=== PATIENT | female | born 1960 | race Caucasian/White ===

== ENCOUNTER 2017-07-17 13:29 | Emergency (ER) | payer MEDICARE ==
[2017-07-17 13:47] VITALS: BP 181/81
== END 2017-07-17 13:55 | disposition left against medical advice (07) ==
LOC: UCEAST 13:29
DX: K08.89 Other specified disorders of teeth and supporting structures (principal); Z53.21 Procedure and treatment not carried out due to patient leaving prior to being seen by health care provider

== ENCOUNTER 2018-03-27 10:06 | Emergency (ER) | payer MEDICARE ==
--- NOTE | 2018-03-27 10:25 | ED ---
Back Pain - HPI Summary HPI Summary: 57 y/o female presents to the ED c/o L lower back pain radiating down her L leg. Pain rated 10/10 in severity. Onset yesterday, worsening last night. Pt also c/o rash @ R foot. Pt is ambulatory. Sitting and standing for long periods of time makes the back pain worse. - History of Current Complaint Chief Complaint: EDBackInjuryPain Stated Complaint: BACK PAIN Hx Obtained From: Patient Onset/Duration: Lasting Days Onset/Duration: Started Days Ago Timing: Constant Back Pain Location: Is Discrete @ - L lower back, Radiates To - down L leg Pain Intensity: 10 Alleviating Symptom(s): Nothing - Allergies/Home Medications Allergies/Adverse Reactions: Allergies Allergy/AdvReac Type Severity Reaction Status Date / Time MS Acetaminophen Allergy Nausea And Verified 03/27/18 11:03 [From Darvocet-N] Vomiting MS Codeine [Codeine] Allergy Nausea And Verified 03/27/18 11:03 Vomiting MS Propoxyphene Allergy Nausea And Verified 03/27/18 11:03 [From Darvocet-N] Vomiting MS Amoxicillin AdvReac Nausea And Verified 03/27/18 11:03 [From Augmentin] Vomiting MS Clavulanic Acid AdvReac Nausea And Verified 03/27/18 11:03 [From Augmentin] Vomiting PMH/Surg Hx/FS Hx/Imm Hx Previously Healthy: No Endocrine/Hematology History: Reports: Hx Diabetes, Hx Thyroid Disease Respiratory History: Reports: Hx Chronic Obstructive Pulmonary Disease (COPD) Infectious Disease History: No Infectious Disease History: Denies: History Other Infectious Disease, Traveled Outside the [place] in Last 30 Days - Family History Known Family History: Positive: Unknown - Social History Alcohol Use: Rare Hx Substance Use: No Substance Use Type: Reports: None Hx Tobacco Use: Yes Smoking Status (MU): Current Every Day Smoker Amount Used/How Often: 1 PPD Review of Systems Constitutional: Negative Eyes: Negative ENT: Negative Cardiovascular: Negative Respiratory: Negative Gastrointestinal: Negative Genitourinary: Negative Musculoskeletal: Other - L Lower back pain Positive: Rash Neurological: Negative Psychological: Normal All Other Systems Reviewed And Are Negative: No Physical Exam - Summary Physical Exam Summary: Appearance: Alert, conversive, nontoxic appearing Skin: Warm, dry, no mottling, slightly raised macular rash, non-tender to palpation at R foot. HEENT: EOMI, PERRL, moist mucous membranes Neck: No masses on the neck, supple Respiratory: Clear to auscultation, breath sounds present, no rales, no rhonchi , no wheezes Cardiovascular: RRR, pulses are symmetrical in both lower and upper extremities Abdomen: Soft, non-tender Bowel Sounds: Present Musculoskeletal: No CVA tenderness, no obvious deformity, moving all extremities in a grossly normal manner. There is some tenderness at her L lower back. Pt is up and ambulatory. Neurological: A&Ox3, CN II-XII Intact, moving all extremities symmetrically Psychiatric: Normal affect and mood Triage Information Reviewed: Yes Vital Signs On Initial Exam: Initial Vitals Temp Pulse Resp BP Pulse Ox 98.6 F 87 20 190/78 98 03/27/18 10:11 03/27/18 10:11 03/27/18 10:11 03/27/18 10:11 03/27/18 10:11 Vital Signs Reviewed: Yes Diagnostics - Vital Signs Vital Signs Temp Pulse Resp BP Pulse Ox 03/27/18 10:11 98.6 F 87 20 190/78 98 - Laboratory Lab Statement: Any lab studies that have been ordered have been reviewed, and results considered in the medical decision making process. Back Pain Course/Dx - Course Assessment/Plan: L lower back pain radiating down l leg starting yesterday. Pt was able to get up walk in a [place] and get back into her chair without assistance. In ED course given Tylenol, Mortrin, prednisone. Pt will be d/c home f/u PCP. - Diagnoses Provider Diagnoses: Sciatica Discharge - Sign-Out/Discharge Documenting (check all that apply): Patient Departure - Discharge Plan Condition: Stable Disposition: HOME Prescriptions: Cyclobenzaprine TAB* [Flexeril 10 MG TAB*] 10 mg PO BID PRN #20 tab MDD 2 PRN Reason: Pain - Back predniSONE TAB* [Deltasone 20 MG TAB*] 60 mg PO DAILY #12 tab MDD 3 Patient Education Materials: Sciatica (ED) Forms: *Work Release Referrals: Jia Villaseñor MD [Primary Care Provider] - Additional Instructions: do stretching exercises as instructed. heating pad to your back for comfort. be careful not to leave on more than 20 minutes. you do not want to burn your back. take tylenol, motrin, prednisone, and flexeril as instructed. avoid heavy lifting for 1 week. return immediately if you are leaking urine or stool or you develop numbness to your genital area. - Billing Disposition and Condition Condition: STABLE Disposition: Home - Attestation Statements Document Initiated by Staciibisabelle: Yes Documenting Scribe: Leonard Montilla Provider For Whom Scribe is Documenting (Include Credential): Priti Dent MD Scribe Attestation: Leonard Alatorre, scribed for Priti Dent MD on 03/27/18 at 1214. Scribe Documentation Reviewed: Yes Provider Attestation: The documentation as recorded by the Leonard boyer accurately reflects the service I personally performed and the decisions made by me, Priti Dent MD
[2018-03-27] MEDS ORDERED: predniSONE TAB* 20 MG PO ONE (10:50)
[2018-03-27] MEDS ORDERED: Acetaminophen TAB* 325 MG PO ONE (10:50)
[2018-03-27] MEDS ORDERED: Ibuprofen TAB* 600 MG PO ONE (10:50)
[2018-03-27 11:21] VITALS: BP 190/70
== END 2018-03-27 11:20 | disposition home or self-care (01) ==
LOC: ED 10:06
DX: M54.32 Sciatica, left side (principal); F17.200 Nicotine dependence, unspecified, uncomplicated; Z88.3 Allergy status to other anti-infective agents; Z88.5 Allergy status to narcotic agent
CPT/HCPCS: 99282; A9270-GY; J7512

== ENCOUNTER 2018-07-16 09:13 | Emergency (ER) | payer MEDICARE ==
[2018-07-16 09:34] VITALS: BP 166/77
--- NOTE | 2018-07-16 09:59 | UC ---
Dental HPI - HPI Summary HPI Summary: 57-year-old woman comes in with chief complaint of dental swelling and pain in the left lower molars. She reports that this is a recurrent issue and only level o Levaquin helps. His been going on for couple of days. Get worse overnight with swelling of the left lower jaw. Pain it's worse with chewing. Not chewing does not exacerbate the pain. No fevers or chills. - History of Current Complaint Chief Complaint: UCDentalProblem Stated Complaint: DENTAL Time Seen by Provider: 07/16/18 09:47 Pain Intensity: 8 - Allergies/Home Medications Allergies/Adverse Reactions: Allergies Allergy/AdvReac Type Severity Reaction Status Date / Time acetaminophen Allergy Nausea And Verified 07/16/18 09:37 [From Darvocet-N] Vomiting amoxicillin [From Augmentin] Allergy Nausea And Verified 07/16/18 09:37 Vomiting clavulanic acid Allergy Nausea And Verified 07/16/18 09:37 [From Augmentin] Vomiting clindamycin Allergy GI Upset Verified 07/16/18 09:37 codeine Allergy Nausea And Verified 07/16/18 09:37 Vomiting propoxyphene Allergy Nausea And Verified 07/16/18 09:37 [From Darvocet-N] Vomiting tomato Allergy Rash Verified 07/16/18 09:37 BEES Allergy Difficulty Uncoded 07/16/18 09:37 Breathing Home Medications: Home Medications Dulaglutide [Trulicity] 0.75 mg SQ WEEKLY 07/16/18 [History Confirmed 07/16/18] Insulin Glargine,Hum.rec.anlog [Basaglar Kwikpen] 100 unit SC DAILY 07/16/18 [ History Confirmed 07/16/18] Vortioxetine Hydrobromide [Brintellix] 10 mg PO DAILY 07/16/18 [History Confirmed 07/16/18] PMH/Surg Hx/FS Hx/Imm Hx Endocrine History: Hypothyroidism Cardiovascular History: Hypertension - Surgical History Surgical History: Yes Surgery Procedure, Year, and Place: Rt CARPAL TUNNEL. EXPLORATORY - [facility]- ENDOMETROISIS - Family History Known Family History: Positive: Unknown - Social History Alcohol Use: None Substance Use Type: None Smoking Status (MU): Current Every Day Smoker Type: Cigarettes Amount Used/How Often: 1 PPD Review of Systems All Other Systems Reviewed And Are Negative: Yes Constitutional: Positive: Negative Skin: Positive: Negative Eyes: Positive: Negative ENT: Positive: Dental Pain Respiratory: Positive: Negative Cardiovascular: Positive: Negative Gastrointestinal: Positive: Negative Motor: Positive: Negative Neurovascular: Positive: Negative Musculoskeletal: Positive: Negative Neurological: Positive: Negative Psychological: Positive: Negative Is Patient Immunocompromised?: No Physical Exam Triage Information Reviewed: Yes Appearance: Well-Appearing, Well-Nourished, Pain Distress - MILD Vital Signs: Initial Vital Signs Temp 98.7 F 07/16/18 09:31 Pulse 96 07/16/18 09:31 Resp 18 07/16/18 09:31 BP 166/77 07/16/18 09:31 Pulse Ox 97 07/16/18 09:31 Vital Signs Reviewed: Yes Eye Exam: Normal Eyes: Positive: Conjunctiva Clear ENT: Positive: Pharynx normal, TMs normal Dental: Positive: Other: - Left lower rear molar has extensive decay. There is gingival swelling in this area. Oral pharynx is open. Neck exam: Normal Neck: Positive: Supple Respiratory: Positive: No respiratory distress Musculoskeletal Exam: Normal Musculoskeletal: Positive: Strength Intact, ROM Intact Neurological Exam: Normal Neurological: Positive: Alert, Muscle Tone Normal Psychological Exam: Normal Psychological: Positive: Age Appropriate Behavior Skin Exam: Normal Dental Complaint Course/Dx - Course Course Of Treatment: I discussed the risk of tendon rupture with fluoroquinolones patient. Patient still prefers to be on levofloxacin. - Differential Dx/Diagnosis Provider Diagnosis: Dental infection Discharge - Sign-Out/Discharge Documenting (check all that apply): Patient Departure All imaging exams completed and their final reports reviewed: No Studies - Discharge Plan Condition: Stable Disposition: HOME Prescriptions: Levofloxacin TAB* [Levaquin TAB*] 750 mg PO DAILY #10 tab Patient Education Materials: Dental Abscess (ED) Referrals: Iwona Hyde PA [Primary Care Provider] - Additional Instructions: FOLLOW UP WITH YOUR DENTIST. GET RECHECKED FOR ANY WORSENING OF YOUR CONDITION OR QUESTIONS OR CONCERNS. - Billing Disposition and Condition Condition: STABLE Disposition: Home
== END 2018-07-16 10:06 | disposition home or self-care (01) ==
LOC: UCCORT 09:13
DX: K04.7 Periapical abscess without sinus (principal); Z88.0 Allergy status to penicillin; Z88.5 Allergy status to narcotic agent; Z88.8 Allergy status to other drugs, medicaments and biological substances; I10 Essential (primary) hypertension; F17.210 Nicotine dependence, cigarettes, uncomplicated
CPT/HCPCS: 99212; G0463

== ENCOUNTER 2018-08-15 10:36 | Emergency (ER) | payer MEDICARE ==
[2018-08-15 11:24] VITALS: BP 184/81
--- NOTE | 2018-08-15 11:43 | UC ---
UC General HPI - HPI Summary HPI Summary: Pt presents with c/o generalized malaise, "stomach ache" nausea, vomiting and loose stools X 3 days. Pt reports vomiting X1 today and 3 times each day prior. Loose stools/diarrhea daily 1-2 times per day - History of Current Complaint Chief Complaint: UCGI Stated Complaint: VOMITING Time Seen by Provider: 08/15/18 11:32 Hx Obtained From: Patient Onset/Duration: Sudden Onset, Lasting Days, Still Present Timing: Constant Onset Severity: Mild Current Severity: Mild Pain Intensity: 0 Associated Signs & Symptoms: Positive: Abdominal Pain, Diarrhea, Nausea, Vomiting - Allergy/Home Medications Allergies/Adverse Reactions: Allergies Allergy/AdvReac Type Severity Reaction Status Date / Time acetaminophen Allergy Nausea And Verified 08/15/18 11:24 [From Darvocet-N] Vomiting amoxicillin [From Augmentin] Allergy Nausea And Verified 08/15/18 11:24 Vomiting clavulanic acid Allergy Nausea And Verified 08/15/18 11:24 [From Augmentin] Vomiting clindamycin Allergy GI Upset Verified 08/15/18 11:24 codeine Allergy Nausea And Verified 08/15/18 11:24 Vomiting propoxyphene Allergy Nausea And Verified 08/15/18 11:24 [From Darvocet-N] Vomiting tomato Allergy Rash Verified 08/15/18 11:24 BEES Allergy Difficulty Uncoded 08/15/18 11:24 Breathing PMH/Surg Hx/FS Hx/Imm Hx Previously Healthy: Yes Respiratory History: COPD - Surgical History Surgical History: Yes Surgery Procedure, Year, and Place: Rt CARPAL TUNNEL. EXPLORATORY - [facility]- ENDOMETROISIS - Family History Known Family History: Positive: Cardiac Disease - Social History Occupation: Employed Full-time Lives: With Family Alcohol Use: None Substance Use Type: None Smoking Status (MU): Current Every Day Smoker Type: Cigarettes Amount Used/How Often: 1 PPD Have You Smoked in the Last Year: Yes Review of Systems All Other Systems Reviewed And Are Negative: Yes Constitutional: Positive: Fever, Chills, Fatigue Skin: Positive: Negative Eyes: Positive: Negative ENT: Positive: Negative Respiratory: Positive: Negative Cardiovascular: Positive: Negative Gastrointestinal: Positive: Abdominal Pain, Vomiting, Diarrhea, Nausea Genitourinary: Positive: Negative Motor: Positive: Negative Neurovascular: Positive: Negative Musculoskeletal: Positive: Negative Neurological: Positive: Negative Psychological: Positive: Negative Is Patient Immunocompromised?: No Physical Exam Triage Information Reviewed: Yes Appearance: Ill-Appearing Vital Signs: Initial Vital Signs Temp 99.2 F 08/15/18 11:19 Pulse 97 08/15/18 11:19 Resp 18 08/15/18 11:19 BP 184/81 08/15/18 11:19 Pulse Ox 99 08/15/18 11:19 Vital Signs Reviewed: Yes Eye Exam: Normal ENT: Positive: Nasal congestion Dental Exam: Normal Neck exam: Normal Respiratory: Positive: Decreased breath sounds Cardiovascular Exam: Normal Abdominal Exam: Other - generalized tenderness Bowel Sounds: Positive: Present Musculoskeletal Exam: Normal Neurological Exam: Normal Psychological Exam: Normal Skin Exam: Normal Course/Dx - Diagnoses Provider Diagnosis: Gastroenteritis, Nausea & vomiting, Frequent loose stools Discharge - Sign-Out/Discharge Documenting (check all that apply): Patient Departure All imaging exams completed and their final reports reviewed: No Studies - Discharge Plan Condition: Stable Disposition: HOME Prescriptions: Ondansetron HCl [Zofran] 8 mg PO Q8H PRN #15 tablet PRN Reason: Nausea Patient Education Materials: Gastroenteritis (DC) Forms: *Work Release Referrals: Iwona Hyde PA [Primary Care Provider] - - Billing Disposition and Condition Condition: STABLE Disposition: Home
== END 2018-08-15 11:54 | disposition home or self-care (01) ==
LOC: UCCORT 10:36
DX: K52.9 Noninfective gastroenteritis and colitis, unspecified (principal); R11.2 Nausea with vomiting, unspecified; R19.7 Diarrhea, unspecified; Z88.0 Allergy status to penicillin; Z88.6 Allergy status to analgesic agent; Z88.8 Allergy status to other drugs, medicaments and biological substances; Z88.5 Allergy status to narcotic agent; Z88.1 Allergy status to other antibiotic agents; F17.210 Nicotine dependence, cigarettes, uncomplicated
CPT/HCPCS: 99212; G0463

== ENCOUNTER 2019-08-07 09:28 | Emergency (ER) | payer MEDICARE ==
[2019-08-07 10:15] VITALS: BP 172/90
--- NOTE | 2019-08-07 10:49 | UC ---
Respiratory Complaint HPI - HPI Summary HPI Summary: 3 DAYS OF COUGH, NASAL CONGESTION, FATIGUE, SHORTNESS OF BREATH AND WHEEZE. NO FEVER. HAS NOT USED HER NEBULIZER TREATMENTS. IS STILL SMOKING. HAS A HISTORY OF COPD AND UNCONTROLLED DM. UP-TO-DATE FLU SHOT. - History of Current Complaint Chief Complaint: UCRespiratory Stated Complaint: COUGH Time Seen by Provider: 08/07/19 10:22 Hx Obtained From: Patient Onset/Duration: Gradual Onset, Lasting Days, Still Present Timing: Constant Severity Initially: Moderate Severity Currently: Moderate Pain Intensity: 8 Pain Scale Used: 0-10 Numeric Character: Cough: Nonproductive Aggravating Factors: Nothing Alleviating Factors: Nothing Associated Signs And Symptoms: Positive: Wheezing, Nasal Congestion. Negative: Fever - Allergies/Home Medications Allergies/Adverse Reactions: Allergies Allergy/AdvReac Type Severity Reaction Status Date / Time acetaminophen Allergy Nausea And Verified 08/07/19 09:39 [From Darvocet-N] Vomiting amoxicillin [From Augmentin] Allergy Nausea And Verified 08/07/19 09:39 Vomiting clavulanic acid Allergy Nausea And Verified 08/07/19 09:39 [From Augmentin] Vomiting clindamycin Allergy GI Upset Verified 08/07/19 09:39 codeine Allergy Nausea And Verified 08/07/19 09:39 Vomiting propoxyphene Allergy Nausea And Verified 08/07/19 09:39 [From Darvocet-N] Vomiting tomato Allergy Rash Verified 08/07/19 09:39 BEES Allergy Difficulty Uncoded 08/07/19 09:39 Breathing Home Medications: Home Medications Albuterol 2.5MG/3ML (0.083%)* [Ventolin 2.5 MG/3 ML NEB.DANITA*] 1 dose INH Q6HR PRN 08/07/19 [History Confirmed 08/07/19] Albuterol HFA INHALER* [Ventolin HFA Inhaler*] 2 puff INH Q6HR PRN 08/07/19 [ History Confirmed 08/07/19] Amlodipine Besylate [Amlodipine 2.5 mg tab] 1 tab PO BID 08/07/19 [History Confirmed 08/07/19] Budesonide/Formote 160/4.5(NF) [Symbicort 160/4.5 (NF)] 2 puff INH BID 08/07/19 [History Confirmed 08/07/19] Colchicine [Mitigare] 1 tab PO TID PRN 08/07/19 [History Confirmed 08/07/19] Cyclobenzaprine TAB* [Flexeril 10 MG TAB*] 10 mg PO TID PRN MDD 2 08/07/19 [ History Confirmed 08/07/19] Dicyclomine CAP* [Bentyl CAP*] 1 tab PO Q6HR 08/07/19 [History Confirmed ] Dm/P-Ephed/Acetaminoph/Doxylam [Yane-Floyd Plus Cold+Flu Pkt] 1 dose PO ONCE PRN 08/07/19 [History Confirmed 08/07/19] Ergocalciferol (Vitamin D2) [Ergocalciferol] 1.25 mg PO WEEKLY 08/07/19 [ History Confirmed 08/07/19] Fenofibrate 145 mg PO DAILY 08/07/19 [History Confirmed 08/07/19] Insulin ASPART (NF) [Novolog (NF)] 1 dose SUBCUT Q6HR PRN 08/07/19 [History Confirmed 08/07/19] [place]-3 Fatty Acids/Fish Oil [[place] 3 1,000 mg Softgel] 2 tab PO BID 08/07/19 [ History Confirmed 08/07/19] Polyethylene Glycol 3350 [Clearlax] 1 dose PO DAILY 08/07/19 [History Confirmed 08/07/19] Pregabalin 1 tab PO BID 08/07/19 [History Confirmed 08/07/19] Tramadol HCl 1 tab PO Q8HR 08/07/19 [History Confirmed 08/07/19] PMH/Surg Hx/FS Hx/Imm Hx Endocrine History: Diabetes Cardiovascular History: Hypertension Respiratory History: COPD - Surgical History Surgical History: Yes Surgery Procedure, Year, and Place: Rt CARPAL TUNNEL. EXPLORATORY - [facility]- ENDOMETROISIS - Family History Known Family History: Positive: Cardiac Disease - Social History Alcohol Use: None Substance Use Type: None Smoking Status (MU): Heavy Every Day Tobacco Smoker Type: Cigarettes Amount Used/How Often: 1 PPD Have You Smoked in the Last Year: Yes Review of Systems All Other Systems Reviewed And Are Negative: Yes Skin: Positive: Bruising ENT: Positive: Nasal Discharge Respiratory: Positive: Shortness Of Breath, Cough, Other - WHEEZE Cardiovascular: Positive: Negative Gastrointestinal: Positive: Negative Physical Exam Triage Information Reviewed: Yes Appearance: Well-Appearing, No Pain Distress, Well-Nourished Vital Signs: Initial Vital Signs Temp 99.1 F 08/07/19 09:33 Pulse 94 08/07/19 09:33 Resp 18 08/07/19 09:33 BP 192/101 08/07/19 09:33 Pulse Ox 96 08/07/19 09:33 Vital Signs Reviewed: Yes Eyes: Positive: Conjunctiva Clear ENT: Positive: Hearing grossly normal, Pharynx normal, TMs normal Neck: Positive: Supple, Nontender, No Lymphadenopathy Respiratory: Positive: No respiratory distress, No accessory muscle use, Decreased breath sounds, Wheezing - DIFFUSE Cardiovascular Exam: Normal Abdomen Description: Positive: Soft Musculoskeletal: Positive: No Edema Neurological: Positive: Alert Psychological: Positive: Age Appropriate Behavior Skin: Negative: Rashes Respiratory Course/Dx - Course Course Of Treatment: PRESENTATION CONSISTENT WITH COPD EXACERBATION. PATIENT DECLINES NEBULIZER TREATMENT HERE IN THE URGENT CARE. STATES SHE WILL USE HER MACHINE AT HOME. WILL TREAT WITH PREDNISONE. HAVE DISCUSSED WITH PATIENT THE RISK OF ELEVATED GLUCOSE READINGS WITH THIS MEDICATION. ADVISED TO WATCH HER DIET MORE CLOSELY. WILL ALSO COVER FOR INFECTIOUS PROCESS WITH AZITHROMYCIN ONCE DAILY FOR 5 DAYS. FOLLOW-UP WITH HER PCP. TO THE ER WITHOUT FAIL IF SYMPTOMS ARE NOT IMPROVING WITH THIS TREATMENT. - Differential Dx/Diagnosis Provider Diagnosis: COPD exacerbation Discharge ED - Sign-Out/Discharge Documenting (check all that apply): Patient Departure All imaging exams completed and their final reports reviewed: No Studies - Discharge Plan Condition: Stable Disposition: HOME Prescriptions: Azithromycin 500 mg PO DAILY #5 tablet predniSONE 20 mg TAB [Deltasone 20 MG TAB*] 40 mg PO DAILY #10 tab Patient Education Materials: COPD (Chronic Obstructive Pulmonary Disease) (ED) Referrals: Yolanda Armstrong NP [Primary Care Provider] - If Needed Additional Instructions: YOU'RE LIKELY SUFFERING FROM AN ACUTE COPD EXACERBATION. USE YOUR NEBULIZER AT HOME PRESCRIBED. WILL COVER FOR ANY INFECTIOUS PROCESS WITH AZITHROMYCIN ONCE DAILY FOR 5 DAYS. PREDNISONE TO HELP WITH AIRWAY INFLAMMATION. BE AWARE THAT PREDNISONE WILL CAUSE YOUR GLUCOSE TO BE EVEN HIGHER SO WATCH YOUR DIET AND CHECK YOUR FINGER STICKS REGULARLY WHILE ON THIS MEDICATION. GO TO THE ER WITHOUT FAIL IF YOUR SYMPTOMS ARE NOT IMPROVING AFTER A COUPLE OF DAYS WITH THIS TREATMENT. - Billing Disposition and Condition Condition: STABLE Disposition: Home
== END 2019-08-07 11:00 | disposition home or self-care (01) ==
LOC: UCEAST 09:28
DX: J44.1 Chronic obstructive pulmonary disease with (acute) exacerbation (principal); E11.9 Type 2 diabetes mellitus without complications; I10 Essential (primary) hypertension; F17.210 Nicotine dependence, cigarettes, uncomplicated; Z79.4 Long term (current) use of insulin; Z79.51 Long term (current) use of inhaled steroids; Z79.899 Other long term (current) drug therapy; Z88.0 Allergy status to penicillin; Z88.1 Allergy status to other antibiotic agents; Z88.5 Allergy status to narcotic agent; Z88.6 Allergy status to analgesic agent; Z91.018 Allergy to other foods; Z91.030 Bee allergy status
CPT/HCPCS: 99212; G0463

== ENCOUNTER 2023-01-01 15:36 | Inpatient (IN) ==
[2023-01-01 16:28] LABS: Hematocrit 27.3 % (35-45); Hemoglobin 8.7 g/dL (11.5-14.3); Mean Corpuscular Hemoglobin 26.5 pg (27-33); Mean Corpuscular Hgb Conc 31.7 g/dL (31-36); Mean Corpuscular Volume 83.7 fL (80-97); Mean Platelet Volume 7.4 fL (7.5-11.2); Platelet Count 218 10^3/uL (150-450); Red Blood Count 3.27 10^6/uL (3.63-4.92); Red Cell Distribution Width 19.5 % (12-17); White Blood Count 20.7 10^3/uL (3.8-11.8)
[2023-01-01 16:36] LABS: PCO2 Arterial 30 mmHg (35-45); PO2 Arterial 133 mmHg (80-100)
[2023-01-01] MEDS ORDERED: Haloperidol 5 mg/ml SDV IV/IM 5 MG/ML AMP IV SLOW PU ONE (16:45)
[2023-01-01] MEDS ORDERED: LORazepam 2 mg VIAL 1 ml IV PUSH ONE (16:46)
[2023-01-01] MEDS ORDERED: Lorazepam PYXIS KEY PRN (16:46)
[2023-01-01 16:56] LABS: Urine Appearance Cloudy; Urine Bilirubin Negative (Negative); Urine Blood 2+ (Negative); Urine Color Yellow; Urine Glucose 3+(>=500 mg/dL) (Negative); Urine Ketones 1+ (Negative); Urine Nitrite Negative (Negative); Urine Protein 3+(>=500 mg/dL) (Negative); Urine Urobilinogen Negative (Negative)
[2023-01-01 16:58] LABS: Activated Partial Thrombo Time 32.8 seconds (26.0-38.0); INR 1.43 (0.88-1.18)
[2023-01-01 17:09] LABS: Urine Bacteria Absent (Absent); Urine Red Blood Cell 1+(3-5/hpf) (Absent); Urine Squamous Epithelial Cell Present (Absent); Urine White Blood Cell Trace(0-5/hpf) (Absent)
[2023-01-01] MEDS ORDERED: cefTRIAXone 1 gm/50 mL D5W 1 GM/50 ML BAG IV ONE ×2 (17:18→20:46)
[2023-01-01] MEDS ORDERED: DOXYcycline 100 MG in NS 0.9% 250 ml 250 ML IVPB ONE (17:19)
[2023-01-01 17:25] LABS: Albumin 3.8 g/dL (3.2-5.2); Albumin/Globulin Ratio 1.5 (1-3); C Reactive Protein 168.94 mg/L (<8.01); Creatinine, Serum 2.27 mg/dL (0.51-0.95); Globulin 2.5 g/dL (2-4); Potassium 4.2 mmol/L (3.5-5.0); Total Bilirubin 0.6 mg/dL (0.2-1.0); Total Protein 6.3 g/dL (6.4-8.9); eGFR CKD-EPI 23.5 (>60)
[2023-01-01] MEDS ORDERED: Lactated Ringers 1000 ml BAG 1,000 ML IV ONE (17:35)
[2023-01-01 17:41] LABS: ABS Basophils 0.1 10^3/uL (0.0-0.1); ABS Lymphocytes 0.8 10^3/uL (1.0-4.8); ABS Monocytes 0.9 10^3/uL (0.0-0.9); ABS Neutrophils 18.9 10^3/uL (1.5-7.6); ABS Nucleated RBC 0.01 10^3/ul; Anisocytosis 1+; Lymphocyte % 3.8 %
[2023-01-01] MEDS ORDERED: Dexamethasone IV 4 MG/ML VIAL 1 ml VIAL IV SLOW PU ONE (18:06)
[2023-01-01] MEDS ORDERED: Albuterol/Ipratropium NEB.SOL (2.5/0.5 MG) 3 ML NEB.SOLN INH ONE (18:06)
[2023-01-01 18:08] LABS: High Sensitivity Troponin 1 Hr 108 pg/mL (<15)
[2023-01-01] MEDS ORDERED: Succinylcholine 200 mg VIAL 20 mg/ml 10 ml VIAL (200 mg) ONE (18:35)
[2023-01-01] MEDS ORDERED: Rocuronium 50 mg VIAL 10 mg/ml 5 ml VIAL (50 mg) ONE (18:35)
[2023-01-01] MEDS ORDERED: Ketamine HCL 50 mg/ml 10 ml VIAL (500 MG) IV ONE (18:38)
[2023-01-01] MEDS ORDERED: Rocuronium 50 mg VIAL 10 mg/ml 5 ml VIAL (50 mg) IV ONE (18:38)
[2023-01-01] MEDS ORDERED: fentaNYL INFUSION 50 mcg/mL VL 2,500 MCG/50 ML VIAL IV SCH (19:00)
[2023-01-01] MEDS ORDERED: Vancomycin 1,000 MG in NS 0.9% 250 ml 250 ML IVPB SCH (19:00)
[2023-01-01] MEDS ORDERED: Vancomycin 1,000 MG in NS 0.9% 250 ml 250 ML IVPB ONE (20:44)
[2023-01-01] MEDS ORDERED: Propofol 10 mg/ml 100 ML BTL 1,000 MG/100 ML BTL ONE (22:33)
[2023-01-01] MEDS ORDERED: Vancomycin per Pharmacy 1 EA NOTE FOLLOW UP PRN (22:35)
[2023-01-01] MEDS: Propofol 10 mg/ml 100 ML BTL 1,000 MG/100 ML BTL IV SCH (22:40)
[2023-01-01 22:45] LABS: Hematocrit 27.3 % (35-45); Hemoglobin 8.6 g/dL (11.5-14.3); Mean Corpuscular Hemoglobin 26.6 pg (27-33); Mean Corpuscular Hgb Conc 31.7 g/dL (31-36); Mean Corpuscular Volume 83.7 fL (80-97); Mean Platelet Volume 7.6 fL (7.5-11.2); Platelet Count 198 10^3/uL (150-450); Red Blood Count 3.26 10^6/uL (3.63-4.92); Red Cell Distribution Width 19.2 % (12-17); White Blood Count 19.6 10^3/uL (3.8-11.8)
[2023-01-01 22:52] LABS: Activated Partial Thrombo Time 25.8 seconds (26.0-38.0); INR 1.47 (0.88-1.18)
[2023-01-01 23:19] LABS: Creatinine, Serum 2.31 mg/dL (0.51-0.95)
[2023-01-01 23:21] LABS: PCO2 Arterial 33 mmHg (35-45); PO2 Arterial 77 mmHg (80-100)
[2023-01-01] MEDS: methylPREDNISolone SOD SUCC 40 mg/ml 1 ml VIAL IV SCH (23:41)
[2023-01-01] MEDS: Heparin 5000 UNITS/ML 1 mL VIAL SUBCUT SCH (23:41)
[2023-01-01] MEDS: Pantoprazole VIAL 40 MG VIAL IV SCH (23:42)
[2023-01-01] MEDS: Chlorhexidine MOUTHWASH 0.12% 15 ML UDC TOPICAL SCH (23:51)
[2023-01-01 23:56] LABS: ABS Lymphocytes 0.6 10^3/uL (1.0-4.8); ABS Monocytes 0.8 10^3/uL (0.0-0.9); ABS Neutrophils 18.2 10^3/uL (1.5-7.6)
[2023-01-01 23:57] LABS: Lymphocyte % 2.9 %
[2023-01-02] MEDS ORDERED: Lactated Ringers 1000 ml BAG 1,000 ML IV ONE (01:10)
[2023-01-02] MEDS: Chlorhexidine MOUTHWASH 0.12% 15 ML UDC TOPICAL SCH ×6 (01:39→20:18)
[2023-01-02 05:35] LABS: ABS Lymphocytes 0.3 10^3/uL (1.0-4.8); ABS Monocytes 0.4 10^3/uL (0.0-0.9); ABS Neutrophils 16.6 10^3/uL (1.5-7.6); Hemoglobin 7.7 g/dL (11.5-14.3); Lymphocyte % 1.9 %; Mean Corpuscular Hemoglobin 26.4 pg (27-33); Mean Corpuscular Volume 82.6 fL (80-97); Mean Platelet Volume 7.4 fL (7.5-11.2); Platelet Count 185 10^3/uL (150-450); Red Blood Count 2.91 10^6/uL (3.63-4.92); Red Cell Distribution Width 19.3 % (12-17); White Blood Count 17.3 10^3/uL (3.8-11.8)
[2023-01-02 06:06] LABS: Albumin 3.1 g/dL (3.2-5.2); Albumin/Globulin Ratio 1.3 (1-3); Calcium 8.5 mg/dL (8.6-10.3); Creatinine, Serum 2.31 mg/dL (0.51-0.95); Globulin 2.4 g/dL (2-4); Magnesium 1.7 mg/dL (1.9-2.7); Potassium 3.8 mmol/L (3.5-5.0); Total Bilirubin 0.3 mg/dL (0.2-1.0); Total Protein 5.5 g/dL (6.4-8.9)
[2023-01-02 06:20] LABS: TSH Ultra Thyroid Stim Horm 1.24 mcIU/mL (0.34-5.60)
[2023-01-02] MEDS ORDERED: Magnesium Sulfate IV 1GM/100ML 1 GM/100 ML BAG IV ONE (06:21)
[2023-01-02] MEDS ORDERED: Dextrose 50% Syringe 50 ml 25 GM/50 ML SYRINGE IV PUSH PRN (07:42)
[2023-01-02] MEDS: methylPREDNISolone SOD SUCC 40 mg/ml 1 ml VIAL IV SCH ×3 (07:58→23:35)
[2023-01-02] MEDS: Heparin 5000 UNITS/ML 1 mL VIAL SUBCUT SCH ×2 (08:02→20:18)
[2023-01-02] MEDS ORDERED: Magnesium Sulfate IV 3 GM in NS 0.9% 100 ml BAG 100 ML IVPB ONE (08:20)
[2023-01-02] MEDS ORDERED: Senna TAB 8.6 mg TAB PO PRN (10:52)
[2023-01-02] MEDS ORDERED: Polyethylene Glycol 3350 17 GM PACKET PO PRN (10:52)
[2023-01-02] MEDS: Albuterol/Ipratropium NEB.SOL (2.5/0.5 MG) 3 ML NEB.SOLN INH PRN (11:32)
[2023-01-02 11:48] LABS: Phosphorus 4.3 mg/dL (2.5-5.0)
[2023-01-02] MEDS ORDERED: Potassium Chloride LIQUID 20 MEQ/15 ML LIQUID PO ONE (12:55)
[2023-01-02] MEDS ORDERED: Furosemide 20 mg/2 ml IV VIAL IV SLOW PU ONE (13:58)
[2023-01-02] MEDS: Propofol 10 mg/ml 100 ML BTL 1,000 MG/100 ML BTL IV SCH (14:54)
[2023-01-02] MEDS: cefTRIAXone 2 gm/50 mL D5W 2 GM/50 ML BAG IV SCH (17:30)
[2023-01-02] MEDS: Docusate LIQ 100 MG/10 ML UDC PO SCH (20:18)
[2023-01-02] MEDS: Pantoprazole VIAL 40 MG VIAL IV SCH (20:19)
[2023-01-02] MEDS ORDERED: Insulin GLARGINE 100 un/ml 10 ml VIAL SUBCUT SCH (21:00)
[2023-01-02] MEDS ORDERED: Vancomycin 750 MG in NS 0.9% 250 ML IVPB SCH (22:00)
[2023-01-03] MEDS: Chlorhexidine MOUTHWASH 0.12% 15 ML UDC TOPICAL SCH ×6 (00:21→20:54)
[2023-01-03] MEDS: Propofol 10 mg/ml 100 ML BTL 1,000 MG/100 ML BTL IV SCH ×3 (02:16→20:53)
[2023-01-03 04:48] LABS: ABS Lymphocytes 0.3 10^3/uL (1.0-4.8); ABS Monocytes 0.5 10^3/uL (0.0-0.9); ABS Neutrophils 13.9 10^3/uL (1.5-7.6); ABS Nucleated RBC 0.02 10^3/ul; Eosinophil % 0.3 %; Hematocrit 23.3 % (35-45); Hemoglobin 7.5 g/dL (11.5-14.3); Lymphocyte % 1.8 %; Mean Corpuscular Hemoglobin 26.7 pg (27-33); Mean Corpuscular Hgb Conc 32.3 g/dL (31-36); Mean Corpuscular Volume 82.8 fL (80-97); Mean Platelet Volume 8.1 fL (7.5-11.2); Nucleated Red Blood Cells % 0.1 /100 WBC (0.0-0.4); Platelet Count 219 10^3/uL (150-450); Red Blood Count 2.82 10^6/uL (3.63-4.92); Red Cell Distribution Width 19.5 % (12-17); White Blood Count 14.7 10^3/uL (3.8-11.8)
[2023-01-03 05:28] LABS: Albumin/Globulin Ratio 1.2 (1-3); Calcium 8.6 mg/dL (8.6-10.3); Creatinine, Serum 2.77 mg/dL (0.51-0.95); Globulin 2.6 g/dL (2-4); Magnesium 2.9 mg/dL (1.9-2.7); Phosphorus 5.1 mg/dL (2.5-5.0); Potassium 4.5 mmol/L (3.5-5.0); Total Bilirubin 0.3 mg/dL (0.2-1.0); Total Protein 5.6 g/dL (6.4-8.9); Vancomycin Random 9.5 mcg/mL; eGFR CKD-EPI 18.5 (>60)
[2023-01-03] MEDS ORDERED: Vancomycin Random Level NOTE FOLLOW UP ONE (06:00)
[2023-01-03] MEDS: methylPREDNISolone SOD SUCC 40 mg/ml 1 ml VIAL IV SCH ×3 (06:22→22:32)
[2023-01-03] MEDS ORDERED: Furosemide 40 mg/4 ml IV VIAL IV SLOW PU ONE ×2 (07:36→10:55)
[2023-01-03] MEDS: Heparin 5000 UNITS/ML 1 mL VIAL SUBCUT SCH ×2 (07:57→21:00)
[2023-01-03] MEDS: Docusate LIQ 100 MG/10 ML UDC PO SCH ×2 (07:57→21:08)
[2023-01-03] MEDS ORDERED: Vancomycin 1,000 MG ONCE IVPB ONE (09:30)
[2023-01-03] MEDS ORDERED: Ketamine HCL 50 mg/ml 10 ml VIAL (500 MG) ONE (10:10)
[2023-01-03] MEDS ORDERED: Ketamine HCL 50 mg/ml 10 ml VIAL (500 MG) IV ONE (12:05)
[2023-01-03] MEDS ORDERED: Rocuronium 50 mg VIAL 10 mg/ml 5 ml VIAL (50 mg) IV ONE (12:05)
[2023-01-03] MEDS ORDERED: Rocuronium 50 mg VIAL 10 mg/ml 5 ml VIAL (50 mg) ONE (12:06)
[2023-01-03] MEDS: fentaNYL INFUSION 50 mcg/mL VL 2,500 MCG/50 ML VIAL IV SCH (12:20)
[2023-01-03 16:25] LABS: PCO2 Arterial 34 mmHg (35-45); PO2 Arterial 83 mmHg (80-100)
[2023-01-03] MEDS: cefTRIAXone 2 gm/50 mL D5W 2 GM/50 ML BAG IV SCH (17:20)
[2023-01-03] MEDS: Pantoprazole VIAL 40 MG VIAL IV SCH (20:54)
[2023-01-03] MEDS ORDERED: Cefepime 2 GM in Dextrose 2 GM/50 ML BAG IV SCH (21:00)
[2023-01-03] MEDS: Insulin GLARGINE 100 un/ml 10 ml VIAL SUBCUT SCH (21:01)
[2023-01-03] MEDS: Cefepime 1 GM in Dextrose 1 GM/50 ML BAG IV SCH (22:30)
[2023-01-04] MEDS: Chlorhexidine MOUTHWASH 0.12% 15 ML UDC TOPICAL SCH ×6 (00:49→21:58)
[2023-01-04 04:24] LABS: ABS Lymphocytes 0.3 10^3/uL (1.0-4.8); ABS Monocytes 0.5 10^3/uL (0.0-0.9); ABS Neutrophils 11.8 10^3/uL (1.5-7.6); ABS Nucleated RBC 0.03 10^3/ul; Hematocrit 23.9 % (35-45); Hemoglobin 7.9 g/dL (11.5-14.3); Mean Corpuscular Hemoglobin 26.8 pg (27-33); Mean Corpuscular Hgb Conc 32.9 g/dL (31-36); Mean Corpuscular Volume 81.5 fL (80-97); Mean Platelet Volume 7.6 fL (7.5-11.2); Nucleated Red Blood Cells % 0.2 /100 WBC (0.0-0.4); Platelet Count 226 10^3/uL (150-450); Red Blood Count 2.93 10^6/uL (3.63-4.92); Red Cell Distribution Width 18.9 % (12-17); White Blood Count 12.5 10^3/uL (3.8-11.8)
[2023-01-04] MEDS: Propofol 10 mg/ml 100 ML BTL 1,000 MG/100 ML BTL IV SCH ×2 (04:35→10:56)
[2023-01-04 04:42] LABS: Albumin 3.3 g/dL (3.2-5.2); Calcium 8.8 mg/dL (8.6-10.3); Creatinine, Serum 2.99 mg/dL (0.51-0.95); Globulin 3.3 g/dL (2-4); Magnesium 2.7 mg/dL (1.9-2.7); Potassium 3.8 mmol/L (3.5-5.0); Total Bilirubin 0.3 mg/dL (0.2-1.0); Total Protein 6.6 g/dL (6.4-8.9); eGFR CKD-EPI 16.9 (>60)
[2023-01-04] MEDS: methylPREDNISolone SOD SUCC 40 mg/ml 1 ml VIAL IV SCH ×3 (06:49→21:58)
[2023-01-04 08:17] LABS: Resp Rate 22
[2023-01-04 08:19] LABS: PCO2 Arterial 41 mmHg (35-45); PO2 Arterial 78 mmHg (80-100)
[2023-01-04] MEDS: Docusate LIQ 100 MG/10 ML UDC PO SCH ×2 (08:26→21:58)
[2023-01-04] MEDS: Heparin 5000 UNITS/ML 1 mL VIAL SUBCUT SCH ×2 (08:26→21:55)
[2023-01-04] MEDS: Insulin GLARGINE 100 un/ml 10 ml VIAL SUBCUT SCH ×2 (08:26→21:55)
[2023-01-04] MEDS: Ciprofloxacin 400mg IVPREMIX 400 MG/200 ML BAG IVPB SCH (08:28)
[2023-01-04] MEDS ORDERED: Potassium Chloride LIQUID 20 MEQ/15 ML LIQUID PO ONE (09:36)
[2023-01-04] MEDS: Cefepime 1 GM in Dextrose 1 GM/50 ML BAG IV SCH ×2 (10:18→22:14)
[2023-01-04] MEDS: fentaNYL INFUSION 50 mcg/mL VL 2,500 MCG/50 ML VIAL IV SCH ×2 (11:05→14:21)
[2023-01-04] MEDS ORDERED: Lactulose 30 ml UDC NG TUBE ONE ×2 (11:06→17:12)
[2023-01-04] MEDS ORDERED: fentaNYL 100 mcg/2 ml 50 MCG/ML VIAL IV SLOW PU ONE ×2 (14:31→18:20)
[2023-01-04] MEDS ORDERED: fentaNYL 100 mcg/2 ml 50 MCG/ML VIAL IV SLOW PU PRN ×2 (16:25→18:06)
[2023-01-04] MEDS ORDERED: fentaNYL 100 mcg/2 ml 50 MCG/ML VIAL ONE (16:26)
[2023-01-04] MEDS ORDERED: Senna TAB 8.6 mg TAB PO SCH (21:00)
[2023-01-04] MEDS ORDERED: Vancomycin Trough Check NOTE FOLLOW UP ONE (21:30)
[2023-01-04] MEDS: Pantoprazole VIAL 40 MG VIAL IV SCH (21:58)
[2023-01-04] MEDS ORDERED: Lactulose 30 ml UDC NG TUBE SCH (23:45)
[2023-01-05] MEDS: Chlorhexidine MOUTHWASH 0.12% 15 ML UDC TOPICAL SCH ×6 (00:41→21:16)
[2023-01-05] MEDS: Propofol 10 mg/ml 100 ML BTL 1,000 MG/100 ML BTL IV SCH ×2 (00:51→08:29)
[2023-01-05 05:09] LABS: ABS Lymphocytes 0.2 10^3/uL (1.0-4.8); ABS Monocytes 0.5 10^3/uL (0.0-0.9); ABS Neutrophils 7.8 10^3/uL (1.5-7.6); ABS Nucleated RBC 0.03 10^3/ul; Hematocrit 22.5 % (35-45); Hemoglobin 7.3 g/dL (11.5-14.3); Lymphocyte % 2.9 %; Mean Corpuscular Hemoglobin 26.3 pg (27-33); Mean Corpuscular Hgb Conc 32.4 g/dL (31-36); Mean Platelet Volume 7.6 fL (7.5-11.2); Nucleated Red Blood Cells % 0.3 /100 WBC (0.0-0.4); Platelet Count 208 10^3/uL (150-450); Red Blood Count 2.78 10^6/uL (3.63-4.92); Red Cell Distribution Width 19.5 % (12-17); White Blood Count 8.6 10^3/uL (3.8-11.8)
[2023-01-05 05:26] LABS: Albumin/Globulin Ratio 1.1 (1-3); Calcium 8.3 mg/dL (8.6-10.3); Creatinine, Serum 2.78 mg/dL (0.51-0.95); Globulin 2.8 g/dL (2-4); Magnesium 2.5 mg/dL (1.9-2.7); Phosphorus 4.8 mg/dL (2.5-5.0); Potassium 3.6 mmol/L (3.5-5.0); Total Bilirubin 0.3 mg/dL (0.2-1.0); Total Protein 5.8 g/dL (6.4-8.9); eGFR CKD-EPI 18.4 (>60)
[2023-01-05] MEDS: methylPREDNISolone SOD SUCC 40 mg/ml 1 ml VIAL IV SCH ×2 (06:30→13:48)
[2023-01-05] MEDS: Docusate LIQ 100 MG/10 ML UDC PO SCH (07:19)
[2023-01-05] MEDS ORDERED: Potassium Chloride LIQUID 20 MEQ/15 ML LIQUID PO ONE ×2 (07:31→16:00)
[2023-01-05] MEDS: Insulin GLARGINE 100 un/ml 10 ml VIAL SUBCUT SCH ×2 (08:09→21:50)
[2023-01-05] MEDS: Heparin 5000 UNITS/ML 1 mL VIAL SUBCUT SCH ×2 (08:09→21:03)
[2023-01-05] MEDS: Cefepime 1 GM in Dextrose 1 GM/50 ML BAG IV SCH ×2 (08:11→21:58)
[2023-01-05] MEDS ORDERED: Polyethylene Glycol 3350 17 GM PACKET PO SCH (09:00)
[2023-01-05] MEDS ORDERED: Senna TAB 8.6 mg TAB PO PRN (09:06)
[2023-01-05] MEDS ORDERED: Polyethylene Glycol 3350 17 GM PACKET PO PRN (09:06)
[2023-01-05] MEDS ORDERED: Docusate LIQ 100 MG/10 ML UDC PO PRN (09:06)
[2023-01-05] MEDS: Ciprofloxacin 400mg IVPREMIX 400 MG/200 ML BAG IVPB SCH (09:32)
[2023-01-05] MEDS: Dexmedetomidine 1,000 MCG in NS 0.9% 250 ml 240 ML IV SCH ×2 (10:10→21:41)
[2023-01-05] MEDS: Midazolam 2 mg/2 ml VIAL 1 mg/ml 2 ml VIAL (2 mg) IV SLOW PU PRN ×2 (11:44→22:09)
[2023-01-05] MEDS: fentaNYL INFUSION 50 mcg/mL VL 2,500 MCG/50 ML VIAL IV SCH (12:50)
[2023-01-05] MEDS: Pantoprazole VIAL 40 MG VIAL IV SCH (21:03)
[2023-01-06] MEDS: Chlorhexidine MOUTHWASH 0.12% 15 ML UDC TOPICAL SCH ×6 (01:15→21:01)
[2023-01-06] MEDS: Midazolam 2 mg/2 ml VIAL 1 mg/ml 2 ml VIAL (2 mg) IV SLOW PU PRN (03:03)
[2023-01-06] MEDS: methylPREDNISolone SOD SUCC 40 mg/ml 1 ml VIAL IV SCH ×2 (03:04→15:22)
[2023-01-06] MEDS ORDERED: Furosemide 40 mg/4 ml IV VIAL IV SLOW PU ONE ×2 (03:52→08:37)
[2023-01-06] MEDS ORDERED: LORazepam 2 mg VIAL 1 ml IV PUSH ONE (03:53)
[2023-01-06] MEDS ORDERED: Lorazepam PYXIS KEY PRN (03:53)
[2023-01-06 04:43] LABS: PCO2 Arterial 41 mmHg (35-45); PO2 Arterial 66 mmHg (80-100)
[2023-01-06 04:48] LABS: Hematocrit 18.1 % (35-45); Hemoglobin 5.8 g/dL (11.5-14.3); Mean Corpuscular Hemoglobin 26.5 pg (27-33); Mean Corpuscular Hgb Conc 32.3 g/dL (31-36); Mean Corpuscular Volume 82.2 fL (80-97); Mean Platelet Volume 7.8 fL (7.5-11.2); Platelet Count 215 10^3/uL (150-450); White Blood Count 10.5 10^3/uL (3.8-11.8)
[2023-01-06] MEDS: fentaNYL INFUSION 50 mcg/mL VL 2,500 MCG/50 ML VIAL IV SCH ×2 (04:55→20:57)
[2023-01-06 05:01] LABS: Creatinine, Serum 3.12 mg/dL (0.51-0.95); Globulin 2.9 g/dL (2-4); Magnesium 2.6 mg/dL (1.9-2.7); Potassium 5.8 mmol/L (3.5-5.0); Total Bilirubin 0.3 mg/dL (0.2-1.0); Total Protein 5.9 g/dL (6.4-8.9); eGFR CKD-EPI 16.1 (>60)
[2023-01-06] MEDS ORDERED: Calcium Gluconate 2 GM in NS 0.9% 100 ml BAG 100 ML IVPB ONE (05:04)
[2023-01-06] MEDS ORDERED: SODIUM ZIRCONIUM CYCLOSILICATE 10 GM PACKET PO ONE ×2 (05:04→15:25)
[2023-01-06] MEDS ORDERED: Dextrose 50% Syringe 50 ml 25 GM/50 ML SYRINGE IV PUSH ONE (05:04)
[2023-01-06] MEDS ORDERED: Sodium Polystyrene ORAL.SUSP 15 GM/60 ML BTL PO ONE (05:05)
[2023-01-06 05:07] LABS: Microcytosis 1+
[2023-01-06 05:08] LABS: ABS Lymphocytes 0.7 10^3/uL (1.0-4.8); ABS Monocytes 1.1 10^3/uL (0.0-0.9); ABS Neutrophils 8.6 10^3/uL (1.5-7.6); ABS Nucleated RBC 0.03 10^3/ul; Anisocytosis 1+; Nucleated Red Blood Cells % 0.3 /100 WBC (0.0-0.4)
[2023-01-06 06:18] LABS: INR 1.21 (0.88-1.18)
[2023-01-06] MEDS: Dexmedetomidine 1,000 MCG in NS 0.9% 250 ml 240 ML IV SCH ×2 (08:37→21:28)
[2023-01-06] MEDS: Heparin 5000 UNITS/ML 1 mL VIAL SUBCUT SCH ×2 (09:08→21:05)
[2023-01-06] MEDS: Insulin GLARGINE 100 un/ml 10 ml VIAL SUBCUT SCH (09:09)
[2023-01-06] MEDS: Cefepime 1 GM in Dextrose 1 GM/50 ML BAG IV SCH ×2 (09:09→22:06)
[2023-01-06 09:13] LABS: Ferritin 2516.9 ng/mL (11-307)
[2023-01-06 12:10] LABS: Calcium 8.2 mg/dL (8.6-10.3); Creatinine, Serum 3.27 mg/dL (0.51-0.95); Potassium 5.8 mmol/L (3.5-5.0); eGFR CKD-EPI 15.2 (>60)
[2023-01-06] MEDS ORDERED: Furosemide 20 mg/2 ml IV VIAL IV SLOW PU ONE (15:24)
[2023-01-06 18:10] LABS: Hematocrit 27.4 % (35-45); Mean Corpuscular Hemoglobin 26.5 pg (27-33); Mean Corpuscular Hgb Conc 32.8 g/dL (31-36); Mean Corpuscular Volume 80.6 fL (80-97); Mean Platelet Volume 7.8 fL (7.5-11.2); Platelet Count 187 10^3/uL (150-450); Red Blood Count 3.41 10^6/uL (3.63-4.92); Red Cell Distribution Width 18.9 % (12-17); White Blood Count 14.6 10^3/uL (3.8-11.8)
[2023-01-06 18:25] LABS: Calcium 8.2 mg/dL (8.6-10.3); Creatinine, Serum 3.5 mg/dL (0.51-0.95); Potassium 5.1 mmol/L (3.5-5.0)
[2023-01-06 18:34] LABS: Anisocytosis 3+; Polychromasia 1+
[2023-01-06 18:35] LABS: ABS Basophils 0.1 10^3/uL (0.0-0.1); ABS Lymphocytes 0.8 10^3/uL (1.0-4.8); ABS Neutrophils 12.7 10^3/uL (1.5-7.6); ABS Nucleated RBC 0.04 10^3/ul; Lymphocyte % 5.4 %; Nucleated Red Blood Cells % 0.3 /100 WBC (0.0-0.4)
[2023-01-06] MEDS: Pantoprazole VIAL 40 MG VIAL IV SCH (21:02)
[2023-01-07] MEDS: methylPREDNISolone SOD SUCC 40 mg/ml 1 ml VIAL IV SCH (03:58)
[2023-01-07] MEDS: Chlorhexidine MOUTHWASH 0.12% 15 ML UDC TOPICAL SCH ×6 (03:58→21:19)
[2023-01-07 05:09] LABS: Hematocrit 27.9 % (35-45); Mean Corpuscular Hemoglobin 26.3 pg (27-33); Mean Corpuscular Hgb Conc 32.5 g/dL (31-36); Mean Platelet Volume 8.3 fL (7.5-11.2); Platelet Count 189 10^3/uL (150-450); Red Blood Count 3.44 10^6/uL (3.63-4.92); Red Cell Distribution Width 18.8 % (12-17); White Blood Count 15.1 10^3/uL (3.8-11.8)
[2023-01-07 05:25] LABS: Albumin 3.1 g/dL (3.2-5.2); Creatinine, Serum 3.79 mg/dL (0.51-0.95); Globulin 3.1 g/dL (2-4); Potassium 4.5 mmol/L (3.5-5.0); Total Bilirubin 0.5 mg/dL (0.2-1.0); Total Protein 6.2 g/dL (6.4-8.9); eGFR CKD-EPI 12.7 (>60)
[2023-01-07 05:58] LABS: ABS Basophils 0.1 10^3/uL (0.0-0.1); ABS Lymphocytes 1.3 10^3/uL (1.0-4.8); ABS Monocytes 1.3 10^3/uL (0.0-0.9); ABS Neutrophils 12.4 10^3/uL (1.5-7.6); ABS Nucleated RBC 0.05 10^3/ul; Eosinophil % 0.1 %; Lymphocyte % 8.8 %; Nucleated Red Blood Cells % 0.4 /100 WBC (0.0-0.4)
[2023-01-07 06:04] LABS: Magnesium 2.3 mg/dL (1.9-2.7)
[2023-01-07] MEDS: Heparin 5000 UNITS/ML 1 mL VIAL SUBCUT SCH ×2 (10:04→21:19)
[2023-01-07] MEDS: Cefepime 1 GM in Dextrose 1 GM/50 ML BAG IV SCH (10:29)
[2023-01-07] MEDS: Dexmedetomidine 1,000 MCG in NS 0.9% 250 ml 240 ML IV SCH (11:53)
[2023-01-07] MEDS: Insulin GLARGINE 100 un/ml 10 ml VIAL SUBCUT SCH (12:19)
[2023-01-07] MEDS ORDERED: levETIRAcetam IV 1,500 MG in NS 0.9% 100 ml BAG 100 ML IVPB ONE (16:00)
[2023-01-07] MEDS: Aztreonam 1 GM in NS 0.9% 50 ML 50 ML IV SCH ×2 (16:43→23:39)
[2023-01-07] MEDS: Meropenem 1 GM PREMIX(*) 1 GM/50 ML BAG IV SCH (17:10)
[2023-01-07] MEDS: Pantoprazole VIAL 40 MG VIAL IV SCH (21:20)
[2023-01-08] MEDS: Chlorhexidine MOUTHWASH 0.12% 15 ML UDC TOPICAL SCH ×6 (00:48→20:57)
[2023-01-08] MEDS: Meropenem 1 GM PREMIX(*) 1 GM/50 ML BAG IV SCH ×2 (03:30→16:07)
[2023-01-08] MEDS: Dexmedetomidine 1,000 MCG in NS 0.9% 250 ml 240 ML IV SCH (04:02)
[2023-01-08 04:04] LABS: Hematocrit 26.3 % (35-45); Hemoglobin 8.7 g/dL (11.5-14.3); Mean Corpuscular Hemoglobin 26.4 pg (27-33); Mean Corpuscular Volume 79.8 fL (80-97); Mean Platelet Volume 8.2 fL (7.5-11.2); Platelet Count 186 10^3/uL (150-450); Red Blood Count 3.29 10^6/uL (3.63-4.92); Red Cell Distribution Width 18.6 % (12-17); White Blood Count 15.5 10^3/uL (3.8-11.8)
[2023-01-08 04:20] LABS: Albumin 2.7 g/dL (3.2-5.2); Calcium 7.9 mg/dL (8.6-10.3); Creatinine, Serum 4.01 mg/dL (0.51-0.95); Globulin 2.7 g/dL (2-4); Magnesium 2.2 mg/dL (1.9-2.7); Potassium 3.6 mmol/L (3.5-5.0); Total Bilirubin 0.4 mg/dL (0.2-1.0); Total Protein 5.4 g/dL (6.4-8.9); eGFR CKD-EPI 11.9 (>60)
[2023-01-08 04:37] LABS: ABS Eosinophils 0.1 10^3/uL (0.0-0.5); ABS Lymphocytes 1.4 10^3/uL (1.0-4.8); ABS Monocytes 1.6 10^3/uL (0.0-0.9); ABS Neutrophils 12.3 10^3/uL (1.5-7.6); ABS Nucleated RBC 0.02 10^3/ul; Eosinophil % 0.9 %; Nucleated Red Blood Cells % 0.2 /100 WBC (0.0-0.4)
[2023-01-08] MEDS: Aztreonam 1 GM in NS 0.9% 50 ML 50 ML IV SCH (07:55)
[2023-01-08] MEDS: Insulin GLARGINE 100 un/ml 10 ml VIAL SUBCUT SCH (08:34)
[2023-01-08] MEDS ORDERED: levETIRAcetam IV 750 MG in NS 0.9% 100 ml BAG 100 ML IVPB SCH (09:00)
[2023-01-08] MEDS: methylPREDNISolone SOD SUCC 40 mg/ml 1 ml VIAL IV SCH (09:00)
[2023-01-08] MEDS: Heparin 5000 UNITS/ML 1 mL VIAL SUBCUT SCH ×2 (09:00→21:03)
[2023-01-08] MEDS: levETIRAcetam 500 MG/100 ML IV SCH ×2 (09:03→21:03)
[2023-01-08] MEDS: fentaNYL 100 mcg/2 ml 50 MCG/ML VIAL IV SLOW PU PRN ×2 (15:18→20:43)
[2023-01-08] MEDS: Pantoprazole VIAL 40 MG VIAL IV SCH (21:02)
[2023-01-09] MEDS: fentaNYL 100 mcg/2 ml 50 MCG/ML VIAL IV SLOW PU PRN ×2 (01:41→20:57)
[2023-01-09] MEDS: Chlorhexidine MOUTHWASH 0.12% 15 ML UDC TOPICAL SCH ×6 (01:55→22:40)
[2023-01-09] MEDS: Meropenem 1 GM PREMIX(*) 1 GM/50 ML BAG IV SCH ×2 (03:38→16:13)
[2023-01-09 05:09] LABS: Hematocrit 31.8 % (35-45); Hemoglobin 10.3 g/dL (11.5-14.3); Mean Corpuscular Hemoglobin 26.4 pg (27-33); Mean Corpuscular Hgb Conc 32.4 g/dL (31-36); Mean Corpuscular Volume 81.4 fL (80-97); Mean Platelet Volume 8.1 fL (7.5-11.2); Platelet Count 254 10^3/uL (150-450); Red Cell Distribution Width 19.2 % (12-17); White Blood Count 19.4 10^3/uL (3.8-11.8)
[2023-01-09 05:19] LABS: Calcium 8.5 mg/dL (8.6-10.3); Creatinine, Serum 3.96 mg/dL (0.51-0.95); Magnesium 2.2 mg/dL (1.9-2.7); Phosphorus 6.3 mg/dL (2.5-5.0); Potassium 3.4 mmol/L (3.5-5.0); eGFR CKD-EPI 12.1 (>60)
[2023-01-09 05:44] LABS: ABS Lymphocytes 0.8 10^3/uL (1.0-4.8); ABS Monocytes 2.2 10^3/uL (0.0-0.9); ABS Neutrophils 16.3 10^3/uL (1.5-7.6); ABS Nucleated RBC 0.02 10^3/ul; Eosinophil % 0.2 %; Lymphocyte % 4.1 %; Nucleated Red Blood Cells % 0.1 /100 WBC (0.0-0.4)
[2023-01-09 05:57] LABS: RBC Morphology Normal (Normal)
[2023-01-09] MEDS: Acetaminophen IV 1 GM/100ML 1,000 MG/100 ML BAG IV PRN (08:01)
[2023-01-09] MEDS: Heparin 5000 UNITS/ML 1 mL VIAL SUBCUT SCH ×2 (08:25→22:39)
[2023-01-09] MEDS: methylPREDNISolone SOD SUCC 40 mg/ml 1 ml VIAL IV SCH (08:26)
[2023-01-09] MEDS: Insulin GLARGINE 100 un/ml 10 ml VIAL SUBCUT SCH (08:26)
[2023-01-09] MEDS: levETIRAcetam 500 MG/100 ML IV SCH ×2 (08:42→22:40)
[2023-01-09] MEDS: Midazolam 2 mg/2 ml VIAL 1 mg/ml 2 ml VIAL (2 mg) IV SLOW PU PRN ×3 (19:29→23:12)
[2023-01-09] MEDS: Pantoprazole VIAL 40 MG VIAL IV SCH (22:40)
[2023-01-10] MEDS: Chlorhexidine MOUTHWASH 0.12% 15 ML UDC TOPICAL SCH ×6 (01:16→21:32)
[2023-01-10] MEDS: Midazolam 2 mg/2 ml VIAL 1 mg/ml 2 ml VIAL (2 mg) IV SLOW PU PRN ×2 (01:17→07:28)
[2023-01-10] MEDS: Meropenem 1 GM PREMIX(*) 1 GM/50 ML BAG IV SCH ×2 (03:28→16:31)
[2023-01-10 04:42] LABS: Hematocrit 32.2 % (35-45); Hemoglobin 10.4 g/dL (11.5-14.3); Mean Corpuscular Hemoglobin 26.4 pg (27-33); Mean Corpuscular Hgb Conc 32.3 g/dL (31-36); Mean Platelet Volume 8.3 fL (7.5-11.2); Platelet Count 268 10^3/uL (150-450); Red Blood Count 3.93 10^6/uL (3.63-4.92); Red Cell Distribution Width 19.1 % (12-17); White Blood Count 14.8 10^3/uL (3.8-11.8)
[2023-01-10 04:58] LABS: Albumin 2.9 g/dL (3.2-5.2); Calcium 8.4 mg/dL (8.6-10.3); Creatinine, Serum 3.61 mg/dL (0.51-0.95); Magnesium 2.2 mg/dL (1.9-2.7); Phosphorus 6.2 mg/dL (2.5-5.0); Potassium 3.6 mmol/L (3.5-5.0); Total Bilirubin 0.4 mg/dL (0.2-1.0); Total Protein 5.9 g/dL (6.4-8.9); eGFR CKD-EPI 13.5 (>60)
[2023-01-10 04:59] LABS: ABS Basophils 0.1 10^3/uL (0.0-0.1); ABS Eosinophils 0.1 10^3/uL (0.0-0.5); ABS Lymphocytes 1.1 10^3/uL (1.0-4.8); ABS Monocytes 1.7 10^3/uL (0.0-0.9); ABS Neutrophils 11.8 10^3/uL (1.5-7.6); ABS Nucleated RBC 0.01 10^3/ul; Eosinophil % 0.4 %; Lymphocyte % 7.5 %; Nucleated Red Blood Cells % 0.1 /100 WBC (0.0-0.4)
[2023-01-10] MEDS: Heparin 5000 UNITS/ML 1 mL VIAL SUBCUT SCH ×2 (09:06→21:32)
[2023-01-10] MEDS: KCL 20 MEQ/100 ML IVPREMIX 20 MEQ/100 ML BAG IV SCH ×2 (09:07→11:21)
[2023-01-10] MEDS: Insulin GLARGINE 100 un/ml 10 ml VIAL SUBCUT SCH (09:07)
[2023-01-10] MEDS: levETIRAcetam 500 MG/100 ML IV SCH (09:24)
[2023-01-10] MEDS: methylPREDNISolone SOD SUCC 125 mg 2 ML VIAL IV SCH (09:29)
[2023-01-10] MEDS: methylPREDNISolone SOD SUCC 40 mg/ml 1 ml VIAL IV SCH (09:47)
[2023-01-10] MEDS: Dexmedetomidine 1,000 MCG in NS 0.9% 250 ml 240 ML IV SCH (16:15)
[2023-01-10] MEDS: Pantoprazole VIAL 40 MG VIAL IV SCH (21:32)
[2023-01-11] MEDS ORDERED: Midazolam 2 mg/2 ml VIAL 1 mg/ml 2 ml VIAL (2 mg) IV SLOW PU PRN (02:10)
[2023-01-11] MEDS: Chlorhexidine MOUTHWASH 0.12% 15 ML UDC TOPICAL SCH ×6 (02:34→20:37)
[2023-01-11] MEDS: Dexmedetomidine 1,000 MCG in NS 0.9% 250 ml 240 ML IV SCH (02:42)
[2023-01-11] MEDS: Meropenem 1 GM PREMIX(*) 1 GM/50 ML BAG IV SCH ×2 (03:49→15:59)
[2023-01-11 05:15] LABS: Hematocrit 29.8 % (35-45); Hemoglobin 9.5 g/dL (11.5-14.3); Mean Corpuscular Hemoglobin 26.3 pg (27-33); Mean Corpuscular Hgb Conc 32.1 g/dL (31-36); Mean Corpuscular Volume 82.2 fL (80-97); Mean Platelet Volume 8.3 fL (7.5-11.2); Platelet Count 230 10^3/uL (150-450); Red Blood Count 3.62 10^6/uL (3.63-4.92); Red Cell Distribution Width 18.9 % (12-17); White Blood Count 13.8 10^3/uL (3.8-11.8)
[2023-01-11 05:17] LABS: ABS Basophils 0.1 10^3/uL (0.0-0.1); ABS Eosinophils 0.2 10^3/uL (0.0-0.5); ABS Lymphocytes 1.8 10^3/uL (1.0-4.8); ABS Monocytes 1.6 10^3/uL (0.0-0.9); ABS Neutrophils 10.2 10^3/uL (1.5-7.6); ABS Nucleated RBC 0.03 10^3/ul; Eosinophil % 1.4 %; Lymphocyte % 12.7 %; Nucleated Red Blood Cells % 0.2 /100 WBC (0.0-0.4)
[2023-01-11 05:37] LABS: Albumin 2.7 g/dL (3.2-5.2); Calcium 8.2 mg/dL (8.6-10.3); Creatinine, Serum 3.28 mg/dL (0.51-0.95); Globulin 2.7 g/dL (2-4); Magnesium 2.1 mg/dL (1.9-2.7); Phosphorus 5.1 mg/dL (2.5-5.0); Potassium 3.9 mmol/L (3.5-5.0); Total Bilirubin 0.3 mg/dL (0.2-1.0); Total Protein 5.4 g/dL (6.4-8.9); eGFR CKD-EPI 15.1 (>60)
[2023-01-11] MEDS: methylPREDNISolone SOD SUCC 125 mg 2 ML VIAL IV SCH (07:20)
[2023-01-11] MEDS: Acetaminophen IV 1 GM/100ML 1,000 MG/100 ML BAG IV PRN (07:20)
[2023-01-11] MEDS: Heparin 5000 UNITS/ML 1 mL VIAL SUBCUT SCH ×2 (07:20→20:36)
[2023-01-11] MEDS: Insulin GLARGINE 100 un/ml 10 ml VIAL SUBCUT SCH (07:23)
[2023-01-11] MEDS ORDERED: Lactulose 30 ml UDC NG TUBE SCH (09:00)
[2023-01-11] MEDS ORDERED: Dexmedetomidine 1,000 MCG in NS 0.9% 250 ml 240 ML IV SCH (15:00)
[2023-01-11] MEDS ORDERED: Propofol 10 mg/ml 100 ML BTL 1,000 MG/100 ML BTL IV SCH (19:00)
[2023-01-11] MEDS: Pantoprazole VIAL 40 MG VIAL IV SCH (20:36)
[2023-01-12] MEDS: Chlorhexidine MOUTHWASH 0.12% 15 ML UDC TOPICAL SCH ×3 (00:57→08:35)
[2023-01-12 05:02] LABS: Hematocrit 31.3 % (35-45); Hemoglobin 10.2 g/dL (11.5-14.3); Mean Corpuscular Hemoglobin 26.5 pg (27-33); Mean Corpuscular Hgb Conc 32.5 g/dL (31-36); Mean Corpuscular Volume 81.4 fL (80-97); Platelet Count 249 10^3/uL (150-450); Red Blood Count 3.85 10^6/uL (3.63-4.92); White Blood Count 20.6 10^3/uL (3.8-11.8)
[2023-01-12] MEDS: Meropenem 1 GM PREMIX(*) 1 GM/50 ML BAG IV SCH ×2 (05:03→16:25)
[2023-01-12 05:19] LABS: Albumin 2.9 g/dL (3.2-5.2); Calcium 8.2 mg/dL (8.6-10.3); Creatinine, Serum 2.86 mg/dL (0.51-0.95); Globulin 2.8 g/dL (2-4); Phosphorus 4.6 mg/dL (2.5-5.0); Potassium 3.8 mmol/L (3.5-5.0); Total Bilirubin 0.4 mg/dL (0.2-1.0); Total Protein 5.7 g/dL (6.4-8.9); eGFR CKD-EPI 17.8 (>60)
[2023-01-12 05:50] LABS: INR 1.05 (0.88-1.18)
[2023-01-12 06:02] LABS: ABS Basophils 0.1 10^3/uL (0.0-0.1); ABS Eosinophils 0.3 10^3/uL (0.0-0.5); ABS Lymphocytes 2.4 10^3/uL (1.0-4.8); ABS Monocytes 1.7 10^3/uL (0.0-0.9); ABS Neutrophils 16.1 10^3/uL (1.5-7.6); ABS Nucleated RBC 0.02 10^3/ul; Anisocytosis 2+; Eosinophil % 1.4 %; Lymphocyte % 11.8 %; Nucleated Red Blood Cells % 0.1 /100 WBC (0.0-0.4)
[2023-01-12] MEDS: Heparin 5000 UNITS/ML 1 mL VIAL SUBCUT SCH ×2 (08:32→20:23)
[2023-01-12] MEDS: Insulin GLARGINE 100 un/ml 10 ml VIAL SUBCUT SCH (08:33)
[2023-01-12] MEDS: Albuterol/Ipratropium NEB.SOL (2.5/0.5 MG) 3 ML NEB.SOLN INH PRN ×3 (10:02→21:39)
[2023-01-12] MEDS ORDERED: guaiFENesin 100 mg/5 ml LIQ unit dose cup PO PRN (10:26)
[2023-01-12] MEDS ORDERED: Lorazepam PYXIS KEY PRN ×3 (10:35→18:20)
[2023-01-12] MEDS ORDERED: LORazepam 2 mg VIAL 1 ml IV PUSH ONE ×2 (10:35→14:22)
[2023-01-12] MEDS ORDERED: LORazepam 2 mg VIAL 1 ml ONE (11:00)
[2023-01-12] MEDS ORDERED: D5LR 1000 ml BAG 1,000 ML IV SCH (13:00)
[2023-01-12] MEDS: hydrALAZINE 20 mg/ml 1 ML Vial IV IV SLOW PU PRN ×2 (14:53→21:06)
[2023-01-12] MEDS: Scopolamine 1 mg/72hr PATCH TRANSDERM SCH (14:54)
[2023-01-12] MEDS: LORazepam 2 mg VIAL 1 ml IV PUSH PRN (19:39)
[2023-01-12] MEDS: D5LR 1000 ml BAG 1,000 ML IV SCH (20:23)
[2023-01-12] MEDS: Pantoprazole VIAL 40 MG VIAL IV SCH (20:23)
[2023-01-12] MEDS ORDERED: Droperidol 5 MG/2 ML 2 ML VIAL IV ONE (20:48)
[2023-01-12] MEDS: Metoprolol Tartrate 5 mg VIAL 5 ml VIAL (1 mg/ml) IV SCH (21:52)
[2023-01-13] MEDS ORDERED: LORazepam 2 mg VIAL 1 ml IV PUSH ONE (00:32)
[2023-01-13] MEDS ORDERED: Lorazepam PYXIS KEY PRN (00:32)
[2023-01-13] MEDS: Albuterol/Ipratropium NEB.SOL (2.5/0.5 MG) 3 ML NEB.SOLN INH PRN (01:51)
[2023-01-13] MEDS: LORazepam 2 mg VIAL 1 ml IV PUSH PRN ×2 (02:17→23:46)
[2023-01-13] MEDS: hydrALAZINE 20 mg/ml 1 ML Vial IV IV SLOW PU PRN (02:21)
[2023-01-13 04:31] LABS: Hematocrit 34.7 % (35-45); Hemoglobin 11.1 g/dL (11.5-14.3); Mean Platelet Volume 7.6 fL (7.5-11.2); Platelet Count 257 10^3/uL (150-450); Red Blood Count 4.28 10^6/uL (3.63-4.92); Red Cell Distribution Width 19.3 % (12-17); White Blood Count 27.6 10^3/uL (3.8-11.8)
[2023-01-13 04:46] LABS: Calcium 8.5 mg/dL (8.6-10.3); Creatinine, Serum 2.46 mg/dL (0.51-0.95); Magnesium 1.7 mg/dL (1.9-2.7); Potassium 3.5 mmol/L (3.5-5.0); eGFR CKD-EPI 21.4 (>60)
[2023-01-13 04:52] LABS: ABS Basophils 0.1 10^3/uL (0.0-0.1); ABS Eosinophils 0.9 10^3/uL (0.0-0.5); ABS Lymphocytes 1.5 10^3/uL (1.0-4.8); ABS Monocytes 1.3 10^3/uL (0.0-0.9); ABS Neutrophils 24.2 10^3/uL (1.5-7.6); Eosinophil % 3.1 %; Lymphocyte % 5.3 %
[2023-01-13] MEDS: Levothyroxine 100 MCG/5 ML VIAL IV SCH (04:58)
[2023-01-13] MEDS: Metoprolol Tartrate 5 mg VIAL 5 ml VIAL (1 mg/ml) IV SCH ×4 (05:01→21:43)
[2023-01-13] MEDS: Meropenem 1 GM PREMIX(*) 1 GM/50 ML BAG IV SCH ×2 (05:05→16:31)
[2023-01-13] MEDS: D5LR 1000 ml BAG 1,000 ML IV SCH (05:50)
[2023-01-13] MEDS ORDERED: methylPREDNISolone SOD SUCC 125 mg 2 ML VIAL IV ONE (07:24)
[2023-01-13] MEDS ORDERED: Furosemide 40 mg/4 ml IV VIAL IV ONE (07:25)
[2023-01-13] MEDS ORDERED: Ondansetron 4 mg VIAL 2 MG/ML 2 ml VIAL IV ONE (07:38)
[2023-01-13] MEDS: Metoclopramide 5 MG/ML VIAL (10 mg) IV SCH ×3 (08:45→19:54)
[2023-01-13] MEDS: Heparin 5000 UNITS/ML 1 mL VIAL SUBCUT SCH ×2 (08:46→19:54)
[2023-01-13] MEDS ORDERED: Albuterol/Ipratropium NEB.SOL (2.5/0.5 MG) 3 ML NEB.SOLN INH SCH (09:00)
[2023-01-13] MEDS: Albuterol/Ipratropium NEB.SOL (2.5/0.5 MG) 3 ML NEB.SOLN INH SCH ×6 (09:15→22:18)
[2023-01-13] MEDS ORDERED: methylPREDNISolone SOD SUCC 40 mg/ml 1 ml VIAL IV SCH (14:00)
[2023-01-13] MEDS ORDERED: methylPREDNISolone SOD SUCC 125 mg 2 ML VIAL IV SCH (14:10)
[2023-01-13] MEDS: methylPREDNISolone SOD SUCC 125 mg 2 ML VIAL IV SCH ×2 (14:27→19:17)
[2023-01-13] MEDS ORDERED: Magnesium Sulfate 2 gm BAG 2 GM/50 ML BAG IVPB ONE (14:44)
[2023-01-13] MEDS ORDERED: KCL 20 MEQ/100 ML IVPREMIX 20 MEQ/100 ML BAG IV ONE (14:44)
[2023-01-13] MEDS: Acetaminophen IV 1 GM/100ML 1,000 MG/100 ML BAG IV PRN (16:08)
[2023-01-13] MEDS: Pantoprazole VIAL 40 MG VIAL IV SCH (19:54)
[2023-01-14] MEDS: Albuterol/Ipratropium NEB.SOL (2.5/0.5 MG) 3 ML NEB.SOLN INH SCH ×7 (02:41→22:16)
[2023-01-14] MEDS: methylPREDNISolone SOD SUCC 125 mg 2 ML VIAL IV SCH ×4 (02:51→20:26)
[2023-01-14] MEDS: Metoprolol Tartrate 5 mg VIAL 5 ml VIAL (1 mg/ml) IV SCH ×4 (04:29→21:37)
[2023-01-14] MEDS: Meropenem 1 GM PREMIX(*) 1 GM/50 ML BAG IV SCH ×2 (04:30→16:23)
[2023-01-14] MEDS: Levothyroxine 100 MCG/5 ML VIAL IV SCH (05:10)
[2023-01-14] MEDS: Metoclopramide 5 MG/ML VIAL (10 mg) IV SCH (09:01)
[2023-01-14 09:08] LABS: ABS Lymphocytes 0.5 10^3/uL (1.0-4.8); ABS Monocytes 0.4 10^3/uL (0.0-0.9); ABS Neutrophils 13.9 10^3/uL (1.5-7.6); Hematocrit 27.7 % (35-45); Hemoglobin 8.8 g/dL (11.5-14.3); Lymphocyte % 3.6 %; Mean Corpuscular Hgb Conc 31.7 g/dL (31-36); Mean Corpuscular Volume 82.1 fL (80-97); Platelet Count 208 10^3/uL (150-450); Red Blood Count 3.38 10^6/uL (3.63-4.92); Red Cell Distribution Width 19.7 % (12-17); White Blood Count 14.8 10^3/uL (3.8-11.8)
[2023-01-14] MEDS: Heparin 5000 UNITS/ML 1 mL VIAL SUBCUT SCH ×2 (09:14→20:26)
[2023-01-14 09:25] LABS: Calcium 8.5 mg/dL (8.6-10.3); Creatinine, Serum 2.5 mg/dL (0.51-0.95); Magnesium 2.3 mg/dL (1.9-2.7)
[2023-01-14] MEDS: Acetaminophen IV 1 GM/100ML 1,000 MG/100 ML BAG IV PRN (10:19)
[2023-01-14] MEDS ORDERED: methylPREDNISolone SOD SUCC 125 mg 2 ML VIAL IV SCH (11:00)
[2023-01-14] MEDS ORDERED: Furosemide 40 mg/4 ml IV VIAL IV ONE (11:18)
[2023-01-14] MEDS ORDERED: Dexmedetomidine 1,000 MCG in NS 0.9% 250 ml 240 ML IV SCH (12:00)
[2023-01-14] MEDS: LORazepam 2 mg VIAL 1 ml IV PUSH PRN (17:27)
[2023-01-14] MEDS: Pantoprazole VIAL 40 MG VIAL IV SCH (20:26)
[2023-01-15] MEDS: LORazepam 2 mg VIAL 1 ml IV PUSH PRN (00:45)
[2023-01-15] MEDS: Acetaminophen IV 1 GM/100ML 1,000 MG/100 ML BAG IV PRN (01:15)
[2023-01-15] MEDS: Albuterol/Ipratropium NEB.SOL (2.5/0.5 MG) 3 ML NEB.SOLN INH SCH ×5 (02:12→19:18)
[2023-01-15] MEDS: methylPREDNISolone SOD SUCC 125 mg 2 ML VIAL IV SCH ×4 (03:36→20:27)
[2023-01-15] MEDS: Meropenem 1 GM PREMIX(*) 1 GM/50 ML BAG IV SCH ×2 (03:37→15:47)
[2023-01-15] MEDS: Metoprolol Tartrate 5 mg VIAL 5 ml VIAL (1 mg/ml) IV SCH ×4 (04:36→22:06)
[2023-01-15 05:39] LABS: ABS Lymphocytes 0.3 10^3/uL (1.0-4.8); ABS Monocytes 0.4 10^3/uL (0.0-0.9); ABS Neutrophils 14.2 10^3/uL (1.5-7.6); Hemoglobin 9.2 g/dL (11.5-14.3); Lymphocyte % 2.2 %; Mean Corpuscular Hemoglobin 26.6 pg (27-33); Mean Corpuscular Hgb Conc 31.9 g/dL (31-36); Mean Corpuscular Volume 83.5 fL (80-97); Mean Platelet Volume 7.8 fL (7.5-11.2); Platelet Count 204 10^3/uL (150-450); Red Blood Count 3.47 10^6/uL (3.63-4.92); Red Cell Distribution Width 19.5 % (12-17); White Blood Count 14.9 10^3/uL (3.8-11.8)
[2023-01-15 05:54] LABS: Calcium 8.7 mg/dL (8.6-10.3); Creatinine, Serum 2.63 mg/dL (0.51-0.95); Magnesium 2.3 mg/dL (1.9-2.7); Potassium 3.7 mmol/L (3.5-5.0); eGFR CKD-EPI 19.7 (>60)
[2023-01-15] MEDS: Levothyroxine 100 MCG/5 ML VIAL IV SCH (06:15)
[2023-01-15] MEDS ORDERED: Potassium Chloride LIQUID 20 MEQ/15 ML LIQUID PO ONE (08:45)
[2023-01-15] MEDS: Heparin 5000 UNITS/ML 1 mL VIAL SUBCUT SCH ×2 (08:49→20:27)
[2023-01-15] MEDS ORDERED: Furosemide 40 mg/4 ml IV VIAL IV SLOW PU ONE (09:56)
[2023-01-15] MEDS: Scopolamine 1 mg/72hr PATCH TRANSDERM SCH (15:57)
[2023-01-15] MEDS: hydrALAZINE 20 mg/ml 1 ML Vial IV IV SLOW PU PRN (17:28)
[2023-01-15] MEDS: Pantoprazole VIAL 40 MG VIAL IV SCH (20:27)
[2023-01-15] MEDS: Morphine 2 MG/ML SYRINGE IV PRN ×2 (20:33→23:42)
[2023-01-16] MEDS: Albuterol/Ipratropium NEB.SOL (2.5/0.5 MG) 3 ML NEB.SOLN INH SCH ×4 (00:56→19:44)
[2023-01-16] MEDS: Morphine 2 MG/ML SYRINGE IV PRN ×2 (02:56→05:47)
[2023-01-16] MEDS: Meropenem 1 GM PREMIX(*) 1 GM/50 ML BAG IV SCH (02:56)
[2023-01-16] MEDS: Metoprolol Tartrate 5 mg VIAL 5 ml VIAL (1 mg/ml) IV SCH (02:56)
[2023-01-16] MEDS: methylPREDNISolone SOD SUCC 125 mg 2 ML VIAL IV SCH ×2 (02:57→08:56)
[2023-01-16] MEDS: hydrALAZINE 20 mg/ml 1 ML Vial IV IV SLOW PU PRN ×2 (04:27→18:16)
[2023-01-16] MEDS: LORazepam 2 mg VIAL 1 ml IV PUSH PRN ×2 (04:35→09:57)
[2023-01-16] MEDS: Levothyroxine 100 MCG/5 ML VIAL IV SCH (05:51)
[2023-01-16 06:34] LABS: ABS Lymphocytes 0.3 10^3/uL (1.0-4.8); ABS Monocytes 0.3 10^3/uL (0.0-0.9); ABS Neutrophils 10.3 10^3/uL (1.5-7.6); ABS Nucleated RBC 0.01 10^3/ul; Hematocrit 26.7 % (35-45); Hemoglobin 8.8 g/dL (11.5-14.3); Lymphocyte % 2.9 %; Mean Corpuscular Hemoglobin 27.3 pg (27-33); Mean Corpuscular Hgb Conc 32.9 g/dL (31-36); Mean Corpuscular Volume 82.9 fL (80-97); Nucleated Red Blood Cells % 0.1 /100 WBC (0.0-0.4); Platelet Count 164 10^3/uL (150-450); Red Blood Count 3.22 10^6/uL (3.63-4.92); Red Cell Distribution Width 19.7 % (12-17)
[2023-01-16 06:58] LABS: Calcium 8.5 mg/dL (8.6-10.3); Creatinine, Serum 2.53 mg/dL (0.51-0.95); Magnesium 2.2 mg/dL (1.9-2.7); Potassium 3.9 mmol/L (3.5-5.0); eGFR CKD-EPI 20.7 (>60)
[2023-01-16] MEDS: Acetaminophen IV 1 GM/100ML 1,000 MG/100 ML BAG IV PRN (08:31)
[2023-01-16] MEDS: Heparin 5000 UNITS/ML 1 mL VIAL SUBCUT SCH ×2 (08:56→20:42)
[2023-01-16] MEDS ORDERED: Lidocaine 1% MPF 5 ML VIAL INJ ONE (10:29)
[2023-01-16] MEDS ORDERED: methylPREDNISolone SOD SUCC 40 mg/ml 1 ml VIAL IV SCH (11:00)
[2023-01-16] MEDS ORDERED: LORazepam 2 mg VIAL 1 ml IV PUSH ONE ×2 (11:32→11:33)
[2023-01-16] MEDS ORDERED: Lorazepam PYXIS KEY PRN (11:32)
[2023-01-16] MEDS ORDERED: LORazepam 2 mg VIAL 1 ml ONE (11:33)
[2023-01-16] MEDS: Pantoprazole VIAL 40 MG VIAL IV SCH (20:42)
[2023-01-16] MEDS: methylPREDNISolone SOD SUCC 40 mg/ml 1 ml VIAL IV SCH (20:42)
[2023-01-17] MEDS ORDERED: LORazepam 2 mg VIAL 1 ml IV PUSH ONE (01:20)
[2023-01-17] MEDS ORDERED: Lorazepam PYXIS KEY PRN ×2 (01:20→11:25)
[2023-01-17] MEDS ORDERED: LORazepam 2 mg VIAL 1 ml ONE (01:36)
[2023-01-17] MEDS: methylPREDNISolone SOD SUCC 40 mg/ml 1 ml VIAL IV SCH (01:42)
[2023-01-17] MEDS: Albuterol/Ipratropium NEB.SOL (2.5/0.5 MG) 3 ML NEB.SOLN INH SCH ×3 (01:58→13:28)
[2023-01-17] MEDS ORDERED: Dexmedetomidine 1,000 MCG in NS 0.9% 250 ml 240 ML IV SCH (05:00)
[2023-01-17 05:26] LABS: ABS Lymphocytes 0.2 10^3/uL (1.0-4.8); ABS Monocytes 0.4 10^3/uL (0.0-0.9); ABS Nucleated RBC 0.01 10^3/ul; Hematocrit 25.5 % (35-45); Hemoglobin 8.3 g/dL (11.5-14.3); Lymphocyte % 1.8 %; Mean Corpuscular Hemoglobin 27.1 pg (27-33); Mean Corpuscular Hgb Conc 32.4 g/dL (31-36); Mean Corpuscular Volume 83.6 fL (80-97); Mean Platelet Volume 8.2 fL (7.5-11.2); Platelet Count 117 10^3/uL (150-450); Red Blood Count 3.05 10^6/uL (3.63-4.92); Red Cell Distribution Width 20.2 % (12-17); White Blood Count 12.6 10^3/uL (3.8-11.8)
[2023-01-17 05:42] LABS: Albumin 3.2 g/dL (3.2-5.2); Albumin/Globulin Ratio 1.2 (1-3); Calcium 8.1 mg/dL (8.6-10.3); Creatinine, Serum 2.49 mg/dL (0.51-0.95); Globulin 2.6 g/dL (2-4); Magnesium 2.2 mg/dL (1.9-2.7); Potassium 3.9 mmol/L (3.5-5.0); Total Bilirubin 0.6 mg/dL (0.2-1.0); Total Protein 5.8 g/dL (6.4-8.9); eGFR CKD-EPI 21.1 (>60)
[2023-01-17] MEDS: Levothyroxine 100 MCG/5 ML VIAL IV SCH (06:08)
[2023-01-17] MEDS: hydrALAZINE 20 mg/ml 1 ML Vial IV IV SLOW PU PRN (06:41)
[2023-01-17] MEDS: Acetaminophen IV 1 GM/100ML 1,000 MG/100 ML BAG IV PRN (07:45)
[2023-01-17] MEDS: Heparin 5000 UNITS/ML 1 mL VIAL SUBCUT SCH (08:05)
[2023-01-17] MEDS ORDERED: methylPREDNISolone SOD SUCC 40 mg/ml 1 ml VIAL IV SCH (09:00)
[2023-01-17] MEDS ORDERED: Albuterol/Ipratropium NEB.SOL (2.5/0.5 MG) 3 ML NEB.SOLN ONE (10:43)
[2023-01-17] MEDS ORDERED: Albuterol/Ipratropium NEB.SOL (2.5/0.5 MG) 3 ML NEB.SOLN INH PRN (10:43)
[2023-01-17] MEDS ORDERED: fentaNYL 100 mcg/2 ml 50 MCG/ML VIAL IV SLOW PU PRN (11:23)
[2023-01-17] MEDS ORDERED: LORazepam 2 mg VIAL 1 ml IV PUSH PRN (11:25)
[2023-01-17] MEDS ORDERED: fentaNYL INFUSION 50 mcg/mL VL 2,500 MCG/50 ML VIAL IV SCH (13:00)
[2023-01-17] MEDS: LORazepam 2 mg VIAL 1 ml IV PUSH PRN ×2 (16:08→18:07)
[2023-01-17 17:43] VITALS: BP 143/80
== END 2023-01-17 19:35 | disposition expired | DRG 853 ==
LOC: ED 15:36 → SUATTDRO 18:20 → EDHOLD 18:20 → ICU 19:38
PROVIDERS: ADMIT Internal Medicine; ATTEND Internal Medicine